=== PATIENT | female | born 1955 | race Caucasian/White ===

== ENCOUNTER 2016-05-13 08:15 | Emergency (ER) | payer BC ==
[2016-05-13 08:48] VITALS: BP 140/67
--- NOTE | 2016-05-13 09:44 | UC ---
Eye Complaint HPI - HPI Summary HPI Summary: right eye pain and redness and minimal drainage since this am. Wears glasses but not contacts. Hx same about a year ago, had to see PCP afterward when it got worse and needed to change to cipro eye drops. No hx glaucoma. Goes to Dr. Doss's practice for her eye care. States her vision is intact. - History of Current Complaint Chief Complaint: UCEye Stated Complaint: EYE COMPLAINT Time Seen by Provider: 05/13/16 09:35 Hx Obtained From: Patient Onset/Duration: Sudden Onset, Lasting Hours, Still Present Timing: Constant Severity Initially: Moderate Severity Currently: Moderate Pain Intensity: 1 Pain Scale Used: 0-10 Numeric Location of Injury: Conjunctiva Character: Sharp, Foreign Body Sensation Aggravating Factor(s): Nothing Alleviating Factor(s): Nothing Associated Signs And Symptoms: Positive: Drainage (Purulent) Related History: Similar Episode - 1 year ago, conjunctivitis - Risk Factors Penetrating Injury Risk Factor: Negative Globe Rupture Risk Factors: Negative Acute Glaucoma Risk Factors: Negative - Allergies/Home Medications Allergies/Adverse Reactions: Allergies Allergy/AdvReac Type Severity Reaction Status Date / Time Codeine Allergy Unknown Verified 05/26/15 12:50 Reaction Details Penicillins Allergy Hives Verified 03/22/14 13:24 Propoxyphene [From Darvon] Allergy Unknown Verified 05/26/15 12:50 Reaction Details Home Medications: Home Medications Ascorbic Acid TAB* [Vitamin C TAB*] 500 mg PO DAILY 05/13/16 [History Confirmed 05/13/16] Calcium 600 mg PO DAILY 05/13/16 [History Confirmed 05/13/16] Cholecalciferol [Vitamin D] 1,000 unit PO DAILY 05/13/16 [History Confirmed ] Famotidine TAB 40 MG(NF) [Pepcid TAB 40 MG(NF)] 40 mg PO DAILY 05/13/16 [ History Confirmed 05/13/16] Gjfaduqssrd-Sitldkuhnpu-Fmt C- [Glucosamine Chondroitin] 1 tab PO DAILY [History Confirmed 05/13/16] S-Adenosylmethionine [Hipoilto-E] 200 mg PO DAILY 05/13/16 [History Confirmed ] PMH/Surg Hx/FS Hx/Imm Hx Previously Healthy: No - osteoporosis GI/ History Of: Reports: Gastroesophageal Reflux - Surgical History Surgical History: Yes Surgery Procedure, Year, and Place: D&C-2010, cholecystectomy 2014, endoscopy. TUBAL-1984 - Family History Known Family History: Positive: Cardiac Disease - mother, Hypertension - mother and father, Diabetes - mother - Social History Occupation: Employed Full-time - RN Lives: With Family Alcohol Use: Daily Substance Use Type: None Smoking Status (MU): Former Smoker Length of Time of Smoking/Using Tobacco: 5-6 YRS When Did the Patient Quit Smoking/Using Tobacco: 1982 Review of Systems Constitutional: Negative Skin: Negative Eyes: Drainage, Eye Redness ENT: Negative Respiratory: Negative Cardiovascular: Negative Gastrointestinal: Negative Genitourinary: Negative Motor: Negative Neurovascular: Negative Musculoskeletal: Negative Neurological: Negative Psychological: Negative All Other Systems Reviewed And Are Negative: Yes Physical Exam Triage Information Reviewed: Yes Appearance: Well-Appearing, Well-Nourished, Pain Distress Vital Signs: Initial Vital Signs Temp 98.8 F 05/13/16 08:25 Pulse 76 05/13/16 08:25 Resp 18 05/13/16 08:25 BP 140/67 05/13/16 08:25 Vital Signs Reviewed: Yes Eyes: Positive: Conjunctiva Inflamed - right ENT: Positive: Normal ENT inspection, Hearing grossly normal. Negative: Muffled /hoarse voice Neck: Positive: Supple Respiratory: Positive: Lungs clear, Normal breath sounds, No respiratory distress Cardiovascular: Positive: RRR, No Murmur, Pulses Normal, Brisk Capillary Refill Musculoskeletal: Positive: Strength Intact, ROM Intact Neurological: Positive: Alert, Muscle Tone Normal Psychological Exam: Normal Skin Exam: Normal Eye Complaint Course/Dx - Differential Dx/Diagnosis Differential Diagnosis/HQI/PQRI: Conjunctivitis, Corneal Abrasion, Glaucoma Provider Diagnoses: right conjunctivitis Discharge - Discharge Plan Condition: Stable Disposition: HOME Prescriptions: Tobramycin 0.3% OPHTH.CORA* 2 drop RIGHT EYE Q4H #1 btl Patient Education Materials: Conjunctivitis (ED) Forms: *Work Release Referrals: Lamonte Nieves MD [Primary Care Provider] - Melvin Grover MD [Medical Doctor] - Additional Instructions: Please call on May 15, 2016 if you have persisting eye redness or worsening symptoms. The provider working may prescribe Cipro eye drops which worked for you before. We are saving the use of Cipro at this time to prevent developing resistance. Return to urgent care if you have any new or worsening symptoms.
== END 2016-05-13 10:00 | disposition home or self-care (01) ==
LOC: UCCORT 08:15
DX: H10.31 Unspecified acute conjunctivitis, right eye (principal); Z88.5 Allergy status to narcotic agent; Z88.0 Allergy status to penicillin; M81.0 Age-related osteoporosis without current pathological fracture; Z90.49 Acquired absence of other specified parts of digestive tract; Z87.891 Personal history of nicotine dependence
CPT/HCPCS: 99212; G0463

== ENCOUNTER 2018-02-22 12:23 | Emergency (ER) | payer BC ==
[2018-02-22 13:26] VITALS: BP 131/68
--- NOTE | 2018-02-22 14:08 | ED ---
Respiratory - HPI Summary HPI Summary: 62 yr old female with the complaint of coughing, myalgias, chills, runny nose. Onset two days ago. She feels like she may have the flu. She has been having spasmodic coughing spells with chest tightness. She states that she has felt this way before when she had URI symptoms and exacerbation of coughing. She is requesting influenza screen and also inhaler. - History of Current Complaint Chief Complaint: UCRespiratory Stated Complaint: COUGH,CONGESTION Time Seen by Provider: 02/22/18 13:41 Pain Intensity: 0 - Allergy/Home Medications Allergies/Adverse Reactions: Allergies Allergy/AdvReac Type Severity Reaction Status Date / Time Penicillins Allergy Hives Verified 02/22/18 13:23 codeine AdvReac Vomiting Verified 02/22/18 13:23 propoxyphene [From Darvon] AdvReac Vomiting Verified 02/22/18 13:23 PMH/Surg Hx/FS Hx/Imm Hx - Surgical History Surgery Procedure, Year, and Place: D&C-2010. TUBAL-1984 Infectious Disease History: No Infectious Disease History: Denies: Traveled Outside the [place] in Last 30 Days - Family History Known Family History: Positive: Cardiac Disease - mother, Hypertension - mother and father, Diabetes - mother - Social History Occupation: Employed Full-time Alcohol Use: Occasionally Substance Use Type: Reports: None Smoking Status (MU): Former Smoker Length of Time of Smoking/Using Tobacco: 5-6 YRS Review of Systems Constitutional: Negative Positive: Cough All Other Systems Reviewed And Are Negative: Yes Physical Exam Triage Information Reviewed: Yes Vital Signs On Initial Exam: Initial Vitals Temp Pulse Resp BP Pulse Ox 99 F 83 16 131/68 98 02/22/18 13:20 02/22/18 13:20 02/22/18 13:20 02/22/18 13:20 02/22/18 13:20 Vital Signs Reviewed: Yes Appearance: Positive: Well-Appearing, No Pain Distress Skin: Positive: Warm, Skin Color Reflects Adequate Perfusion Head/Face: Positive: Normal Head/Face Inspection Eyes: Positive: EOMI ENT: Positive: Pharynx normal, Nasal congestion. Negative: Hoarse voice Neck: Positive: Nontender Respiratory/Lung Sounds: Positive: Clear to Auscultation, Breath Sounds Present Cardiovascular: Positive: RRR. Negative: Murmur Abdomen Description: Positive: Nontender Musculoskeletal: Positive: Strength/ROM Intact. Negative: Edema Left, Edema Right Neurological: Positive: Sensory/Motor Intact, Alert, Oriented to Person Place, Time, CN Intact II-III, Speech Normal Psychiatric: Positive: Normal - Funmilayo Coma Scale Best Eye Response: 4 - Spontaneous Best Motor Response: 6 - Obeys Commands Best Verbal Response: 5 - Oriented Coma Scale Total: 15 Diagnostics - Vital Signs Vital Signs Temp Pulse Resp BP Pulse Ox 02/22/18 13:20 99 F 83 16 131/68 98 - Laboratory Lab Results: Lab Results 02/22/18 Range/Units 13:48 Influenza A (Rapid) Negative (Negative) Influenza B (Rapid) Negative (Negative) Lab Statement: Any lab studies that have been ordered have been reviewed, and results considered in the medical decision making process. Disposition - Course Course Of Treatment: 62 yr old female with coughing episodes, and tightness with coughing spells. She will be given albuterol. MDI script. She has a neg influenza. - Diagnoses Provider Diagnoses: Acute bronchitis Discharge - Sign-Out/Discharge Documenting (check all that apply): Patient Departure All imaging exams completed and their final reports reviewed: No Studies - Discharge Plan Condition: Good Disposition: HOME Prescriptions: Albuterol HFA INHALER* [Ventolin HFA Inhaler*] 1 - 2 puff INH Q4H PRN #1 [id number] PRN Reason: Cough Patient Education Materials: Acute Bronchitis (ED) Referrals: Lamonte Nieves MD [Primary Care Provider] - 2 Days - Billing Disposition and Condition Condition: GOOD Disposition: Home
== END 2018-02-22 14:14 | disposition home or self-care (01) ==
LOC: UCCORT 12:23
DX: J98.01 Acute bronchospasm (principal); Z88.1 Allergy status to other antibiotic agents; Z88.6 Allergy status to analgesic agent; Z87.891 Personal history of nicotine dependence; Z88.0 Allergy status to penicillin
CPT/HCPCS: 99212; G0463